=== PATIENT | male | born 1965 | race Hispanic/Latino ===

== ENCOUNTER 2017-04-08 09:42 | Emergency (ER) | payer SELFPAY ==
[2017-04-08] MEDS ORDERED: ACETAMINOPHEN EXTRA STRENGTH 500 MG TABLET ONE (09:54)
[2017-04-08] MEDS ORDERED: ONDANSETRON ODT 4 MG TAB ONE (09:55)
[2017-04-08 10:12] LABS: BASOPHILS % (AUTO) 1.2 % (0.0-5.0); EOSINOPHILS % (AUTO) 1.8 % (0.0-8.0); HEMATOCRIT 42.1 % (42-54); LYMPHOCYTES % (AUTO) 30.7 % (21.0-51.0); MEAN CORPUSCULAR HEMOGLOBIN 27.5 pg (27.0-33.0); MEAN CORPUSCULAR HGB CONC 34.3 g/dL (32.0-36.0); MEAN CORPUSCULAR VOLUME 80.2 fL (79-99); MONOCYTES % (AUTO) 13.2 % (3.0-13.0); NEUTROPHILS % (AUTO) 53.1 % (40.0-77.0); PLATELET COUNT (AUTO) 234 K/uL (130-400); RED BLOOD CELL COUNT(AUTO) 5.25 MIL/uL (4.50-6.20); RED CELL DISTRIBUTION WIDTH 14.3 % (11.0-15.5); WHITE BLOOD COUNT (AUTO) 8.3 K/uL (4.8-10.8)
[2017-04-08 10:18] LABS: CREATININE 0.9 mg/dL (0.5-1.5); POTASSIUM 3.7 mmol/L (3.5-5.1)
== END 2017-04-08 10:51 | disposition home or self-care (01) ==
LOC: EDH 09:42
DX: J09.X2 Influenza due to identified novel influenza A virus with other respiratory manifestations (principal); R19.7 Diarrhea, unspecified; R11.10 Vomiting, unspecified; E11.9 Type 2 diabetes mellitus without complications; E78.5 Hyperlipidemia, unspecified; I10 Essential (primary) hypertension; Z88.8 Allergy status to other drugs, medicaments and biological substances
CPT/HCPCS: 36415; 80048; 85025; 87804

== ENCOUNTER 2018-05-17 18:46 | Emergency (ER) | payer MEDICARE ==
[2018-05-17 20:05] LABS: BASOPHILS % (AUTO) 0.4 % (0.0-5.0); EOSINOPHILS % (AUTO) 0.4 % (0.0-8.0); HEMATOCRIT 49.4 % (42-54); LYMPHOCYTES % (AUTO) 7.7 % (21.0-51.0); MEAN CORPUSCULAR HEMOGLOBIN 27.8 pg (27.0-33.0); MEAN CORPUSCULAR HGB CONC 34.1 g/dL (32.0-36.0); MEAN CORPUSCULAR VOLUME 81.7 fL (79-99); MONOCYTES % (AUTO) 9.1 % (3.0-13.0); NEUTROPHILS % (AUTO) 82.4 % (40.0-77.0); NUCLEATED RED BLOOD CELLS 0.1 % (0.0-0.19); PLATELET COUNT (AUTO) 304 K/uL (130-400); RED BLOOD CELL COUNT(AUTO) 6.05 MIL/uL (4.50-6.20); WHITE BLOOD COUNT (AUTO) 12.3 K/uL (4.8-10.8)
[2018-05-17] MEDS ORDERED: DICYCLOMINE HCL 10 MG/ML 2ML AMP IM ONE (20:08)
[2018-05-17] MEDS ORDERED: ONDANSETRON HCL 4 MG/2 ML VIAL ONE (20:08)
[2018-05-17] MEDS ORDERED: KETOROLAC TROMETHAMINE 30MG/ML ONE (20:08)
[2018-05-17] MEDS ORDERED: SODIUM CHLORIDE 0.9% 1000ML 2,000 ML IV ONE (20:08)
[2018-05-17 20:24] LABS: CREATININE 1.1 mg/dL (0.5-1.5); POTASSIUM 4.5 mmol/L (3.5-5.1)
[2018-05-17 20:28] LABS: BILIRUBIN,TOTAL 0.8 mg/dL (0.2-1.0); TOTAL PROTEIN, SERUM 8.4 g/dL (6.0-8.3)
== END 2018-05-17 21:55 | disposition home or self-care (01) ==
LOC: EDH 18:46
DX: K80.80 Other cholelithiasis without obstruction (principal); J10.1 Influenza due to other identified influenza virus with other respiratory manifestations; E11.65 Type 2 diabetes mellitus with hyperglycemia; I10 Essential (primary) hypertension; E78.5 Hyperlipidemia, unspecified
CPT/HCPCS: 36415; 76705; 80053; 82948; 83605; 83690; 85025; 87040 ×2; 87804 ×2; 96361; 96372; 96374; 96375; 99284; J0500; J1885; J2405; J7030

== ENCOUNTER 2021-06-02 17:42 | Emergency (ER) | payer MEDICARE, OTHER ==
[~2021-06-02] VITALS: Ht 165.1 cm; Wt 97.5 kg
[2021-06-02] MEDS ORDERED: ONDANSETRON 4MG INJ IVP ONE (18:00)
[2021-06-02] MEDS ORDERED: MORPHINE 4 MG SYG IVP ONE (18:00)
[2021-06-02] MEDS ORDERED: IBUP-2070 PO (18:39)
[2021-06-02] MEDS ORDERED: ACET1TAB25 PO (18:39)
[2021-06-02 18:51] VITALS: BP 115/69
== END 2021-06-02 18:54 | disposition home or self-care (01) ==
LOC: EDH 17:42
DX: S20.219A Contusion of unspecified front wall of thorax, initial encounter (principal); S30.1XXA Contusion of abdominal wall, initial encounter; E11.9 Type 2 diabetes mellitus without complications; V49.49XA Driver injured in collision with other motor vehicles in traffic accident, initial encounter; Y93.89 Activity, other specified; Y92.410 Unspecified street and highway as the place of occurrence of the external cause; Y99.8 Other external cause status
CPT/HCPCS: 70450; 71250; 72125; 74176; 93005; 96374; 96375; 99285; J2270; J2405

== ENCOUNTER 2023-07-09 19:50 | Emergency (ER) | payer OTHER ==
[~2023-07-09] VITALS: Ht 167.6 cm; Wt 95.3 kg
[~2023-07-09 19:50] MED LIST: DAPA10TA PO; DULO30CA52 PO; GABA-529 PO; LINA5TAB PO; LISI20TA24 PO; METF-446 PO; OMEP20CA12 PO; SEMA1PEN3 SQ; TRAZ150 PO
[2023-07-09] MEDS: LACTATED RINGERS 1000ML 639 ML IV ONE (23:04)
[2023-07-09] MEDS: FAMOTIDINE 20MG VIAL IV ONE (23:05)
[2023-07-09] MEDS: METOCLOPRAMIDE 10 MG/2 ML VIAL IVP ONE (23:05)
[2023-07-09] MEDS: KETOROLAC 30MG VIAL (30MG/ML) IVP ONE (23:05)
[2023-07-09] MEDS: DIAZEPAM 5 MG/ML 2 ML SYG IVP ONE (23:06)
[2023-07-09] MEDS ORDERED: ACET-2079 PO (23:08)
[2023-07-09] MEDS ORDERED: CYCL10TA16 PO (23:08)
[2023-07-09] MEDS ORDERED: NAPR-1192 PO (23:08)
[2023-07-10 00:20] VITALS: BP 124/76; PULSE 63; RESP 16; O2SAT 99
== END 2023-07-10 00:26 | disposition home or self-care (01) ==
LOC: EDH 19:50
DX: S16.1XXA Strain of muscle, fascia and tendon at neck level, initial encounter (principal); I10 Essential (primary) hypertension; E11.9 Type 2 diabetes mellitus without complications; E78.00 Pure hypercholesterolemia, unspecified; K21.9 Gastro-esophageal reflux disease without esophagitis; Z79.84 Long term (current) use of oral hypoglycemic drugs; Z79.899 Other long term (current) drug therapy; Z90.49 Acquired absence of other specified parts of digestive tract; Z88.8 Allergy status to other drugs, medicaments and biological substances; Z98.890 Other specified postprocedural states; V89.2XXA Person injured in unspecified motor-vehicle accident, traffic, initial encounter; Y93.I9 Activity, other involving external motion; Y92.488 Other paved roadways as the place of occurrence of the external cause; Y99.8 Other external cause status
CPT/HCPCS: 99284; 96374; 96375; 71045; 96361; 72170; 72050; J7120; J3490; J3360; J1885; J2765